=== PATIENT | female | born 1990 | race Caucasian/White ===

== ENCOUNTER 2017-12-06 05:35 | Day surgery (SDC) | payer OTHER ==
[~2017-12-06] VITALS: Ht 180.3 cm; Wt 102.1 kg
--- NOTE | ~2017-12-06 | OR ---
[facility] [address], [place] [address] Draft DATE OF OPERATION: SURGEON: Neida Farris MD PREOPERATIVE DIAGNOSIS: Pelvic pain, SALVADOR II. POSTOPERATIVE DIAGNOSIS: Pelvic pain, SALVADOR II with pelvic and ovarian endometriosis. PROCEDURE: Laparoscopy with laser and cautery fulguration of endometriosis and LEEP. ANESTHESIA: General ET. ESTIMATED BLOOD LOSS: Minimal. DRAINS: None. INDICATIONS AND FINDINGS: The patient is a 27-year-old female, 2, para 2, currently using for control, who has been having pelvic pain for the last few months. This began prior to her arrival in the [facility]. She had an evaluation with a fisheries specialist in [place] and was found to have SALVADOR II on cervical biopsies, but was also quite tender in the pelvis. She was treated for PID x2 without significant improvement in her symptoms. Endometrial biopsy was benign. There was no evidence of infection on it. Because her symptoms persisted, it was felt that further evaluation was needed. At the time of surgery exam under anesthesia was normal. At the time of laparoscopy, there was endometriosis over the surface of both ovaries as well as the deep window in the right cul-de-sac. DESCRIPTION OF PROCEDURE: The patient was prepped and draped in the dorsal lithotomy position. A weighted speculum was placed and the anterior lip of the cervix was visualized and grasped with a single-tooth tenaculum. The Hulka clamp was then placed and the speculum and tenaculum removed. Attention was directed above. The infraumbilical area was injected with 0.5% Marcaine plain. An incision was made with a knife and then each layer was serially elevated and incised until the fascia was opened and identified. Stay sutures were PATIENT NAME: NEIDA ALMENDAREZ OPERATIVE REPORT DATE OF : [birth year] REPORT #: [id number] PHYSICIAN: NEIDA FARRIS MD PCP: JEFF RIOS REPORT IS CONFIDENTIAL AND NOT TO BE RELEASED WITHOUT AUTHORIZATION [facility] [address], [place] [address] Draft placed. The peritoneum was opened bluntly and the Lopez cannula placed and the balloon inflated. It was also tied into place. Placing the scope confirmed proper positioning. CO2 was then introduced into the abdomen. The secondary port was placed on the left side slightly below the umbilicus and laterally. This area was transilluminated, injected with the Marcaine, incision made with a knife and a 5 mm bladed port was placed and the balloon inflated. The port was placed under direct vision. Following this, the pelvis was visualized and the endometriosis seen. Because of the area in the cul-de-sac, it was felt that a 3rd puncture was needed. This was placed on the far right just below the umbilicus. Again, this area was transilluminated, injected with the Marcaine, incision made with a knife and a 5 mm port placed under direct vision. Following this, the diode laser was used. Initially a power of 2 was used to vaporize over the surface of the patient's left ovary. This was then increased to a power of 4. Following this, the right ovary was treated over the surface. The area in the window, which was lateral to the right uterosacral ligament and the window was treated with laser as well. Following this, the fiber was not functioning well and this was removed and it was felt that the fiber tip was damaged. Cautery was then used over the surface of the left ovary to treat some further areas. Following this, the abdominal portion was complete as all areas had been treated. The incisions removed from the abdomen after allowing as much CO2 as possible to escape. The fascial incision of the umbilicus was reidentified and closed with a running suture of 0 Vicryl. The stay sutures were tied across as well. The skin incisions were closed with subcuticular sutures of 3-0 Vicryl Rapide. Following this, attention was directed down below. The insulated speculum was placed and the cervix stained with Lugol's. The exocervix was removed with a large shallow loop. A secondary specimen was taken of the canal using the narrow deep loop. The ball cautery was used to control bleeding at the base of the cervix. This was followed by treatment with Monsel's solution. The cervix was observed and there was no evidence of ongoing bleeding. The procedure was then terminated with removal of the vaginal instruments. She was taken to the recovery room in good condition. MD BERNARDINO Calhoun/MODL /[id number] cc: Jeff Rios PATIENT NAME: NEIDA ALMENDAREZ OPERATIVE REPORT DATE OF : [birth year] REPORT #: [id number] PHYSICIAN: NEIDA FARRIS MD PCP: JEFF RIOS REPORT IS CONFIDENTIAL AND NOT TO BE RELEASED WITHOUT AUTHORIZATION [facility] [address] [place], [place] [address] Draft Copies: JEFF RIOS ~ PATIENT NAME: NEIDA ALMENDAREZ OPERATIVE REPORT DATE OF : 86 REPORT #: [id number] PHYSICIAN: NEIDA FARRIS MD PCP: JEFF RIOS REPORT IS CONFIDENTIAL AND NOT TO BE RELEASED WITHOUT AUTHORIZATION
[~2017-12-06 05:35] MED LIST: CALCIUM500 M1 PO; CLARITIN10 MG PO; CYCLOBENZAPRINE10 MG PO; FEOSOL325 MG PO; KEFLEX500 MG PO; LABETALOL HCL100 MG PO; NUVIGIL50 MG PO; OMEPRAZOLE20 MG PO; PEPCID20 MG PO; PRENATAL VITAM1 EAC3 PO; PROZAC20 MG PO; ZOLOFT100 MG PO; ZYRTEC10 MG PO
--- NOTE | 2017-12-06 08:55 | NUR ---
12/06/17 0855 Mavis Orozco 0846 PT ARRIVED TO PACU REACTIVE TO DENIES PAIN, RESP EVEN AND UNLABORED ON 10L VIA MASK. 0849 O2 DECREASED TO 6L O2 SAT 100%. AT BEDSIDE. 0852 PT REPORTS MOUTH VERY DRY, MOUTH SWAB USED AND O2 MASK REMOVED, O2 SAT 100%.
--- NOTE | 2017-12-06 09:39 | NUR ---
PT ARRIVES TO DS RM 3 FROM PACU DROWSY, BUT EASILY AROUSABLE BY VOICE COMMAND. PT NAUSEATED ON ARRIVAL. PT STATES PAIN 4/10 AND DESCRIBES IT "CRAMPY" IN LRQ. PT SPOUSE AT BEDSIDE ON ARRIVAL. PT SHIVERING, WARM BLANKET PROVIDED AND CHANG HUGGER PLACED ON WARM. SCD'S IN PLACE. PT PROVIDED ICED WATER AND CRACKERS. CALL LIGHT AT PT LEFT SIDE. WILL CONTINUE TO MONITOR.
[2017-12-06] MEDS ORDERED: PERCOCET 5-3251 EACH PO (11:24)
[2017-12-06] MEDS ORDERED: IBUPROFEN800 MG PO (11:27)
[2017-12-06] MEDS ORDERED: ZOFRAN ODT4 MG PO (11:29)
--- NOTE | 2017-12-06 11:54 | NUR ---
PT WAKES UP FROM RESTING WITH EYES CLOSED. PT REQUESTS TO REMOVE BLANKETS AND TURN OFF CHANG HUGGER. PT IV SALINE LOCKED AND PT SITTING UPRIGHT AT EDGE OF BED. PT AMBULATES TO BR WITH RN ASSIST, DENIES ANY DIZZINESS OR NAUSEA. PT VOIDS 300 MLS YELLOW URINE WITH NO PROBLEM. PT BACK IN BED AND LUNCH ORDERED. CALL LIGHT REMAINS AT PT LEFT SIDE AND SPOUSE AT BEDSIDE.
--- NOTE | 2017-12-06 12:51 | NUR ---
DC CRITERIA MET. PT REQUESTS TO GET DRESSED AND DC HOME. DC INSTRUCTIONS GIVEN IN PRESENCE OF PT AND AND SPOUSE. ALL QUESTIONS ANSWERED. MED SCRIPT GIVEN TO PT. PT DC'S VIA WC FROM CJ RM 3 WITH SPOUSE.
== END 2017-12-06 12:45 | disposition home or self-care (01) ==
LOC: DS 05:35
PROVIDERS: Obstetrics & Gynecology
PROC: 0UBC7ZZ Excision of Cervix, Via Natural or Artificial Opening (ICD-10-PCS; principal; 2017-12-06 06:45)
PROC: 0UB24ZZ Excision of Bilateral Ovaries, Percutaneous Endoscopic Approach (ICD-10-PCS; 2017-12-06 06:45)
DX: N87.0 Mild cervical dysplasia (principal); N72 Inflammatory disease of cervix uteri; N80.1 Endometriosis of ovary; N80.3 Endometriosis of pelvic peritoneum; J45.909 Unspecified asthma, uncomplicated; M54.9 Dorsalgia, unspecified; G89.29 Other chronic pain; K21.9 Gastro-esophageal reflux disease without esophagitis; E66.9 Obesity, unspecified; Z68.31 Body mass index [BMI] 31.0-31.9, adult; Z91.048 Other nonmedicinal substance allergy status; F32.9 Major depressive disorder, single episode, unspecified; Z79.899 Other long term (current) drug therapy
CPT/HCPCS: 00840; J0330; J1100; J1885; J2250; J2405; J2704; J2765; J3010; J7120